=== PATIENT | female | born 1975 | race Two or more races ===

== ENCOUNTER 2023-02-19 10:32 | Emergency (ER) | payer SELFPAY ==
[~2023-02-19] VITALS: Ht 154.9 cm; Wt 55.8 kg
[2023-02-19 10:46] VITALS: BP 170/95; PULSE 63; RESP 18; TEMP 98.4; O2SAT 96
[2023-02-19] MEDS ORDERED: LOSA25TA41 PO (11:41)
== END 2023-02-19 11:50 | disposition home or self-care (01) ==
LOC: ER 10:33
DX: I10 Essential (primary) hypertension (principal); R51.9 Headache, unspecified; Z90.710 Acquired absence of both cervix and uterus
CPT/HCPCS: 99283